=== PATIENT | male | born 1940 | race Caucasian/White ===

== ENCOUNTER 2025-06-16 08:23 | Day surgery (SDC) | payer OTHER, SELFPAY ==
[2025-06-16] VITALS (15 sets, daily range): BP systolic 102–135; BP diastolic 60–85; BMI 30.2
[2025-06-16 09:30] LABS: Hematocrit 38.9 % (39.0-52.0); Hemoglobin 12.8 g/dL (13.0-18.0); Mean Corp Hgb Conc. 32.9 g/dL (33.0-37.0); Mean Corpuscular Volume 82.9 fL (80.0-94.0); Platelet Count 229 10^3/uL (130-400); Red Cell Dist. Width 15.0 % (11.5-14.5)
[2025-06-16 09:31] LABS: Glucose - Point of Care 99 mg/dl (70-99)
[2025-06-16] MEDS: NSS 239 ML IV (09:51)
--- NOTE | 2025-06-16 11:55 | CONSULT.STRU ---
Consultation
-
Date/Time Consultation Requested: 06/16/2025
Date/Time Consultation Performed: 06/16/2025
Requesting Provider: Park Coleman MD
Performing Provider: Malika Fung
Reason for Consultation: / TAVR
Patient History
Physicians
Family Physician: Malika Heard MD
Outpatient Marine Chronometer Assembler: Von Pascal MD
Primary Marine Chronometer Assembler: Von Pascal
History of Present Illness
Mr. Mims is a very pleasant 84 yom with a past medical history significant for , Aflutter, DM, CAD w/ a hx of CABG (2007), and LBBB. His most recent echocardiogram from 05/16/2025 is notable for EF 30-35%, AV P/M 41//24. mild AI , mild MACm
mild MR, RVSP 14. Cardiac catheterization from 06/16/2025 demonstrated Severe functionally occlusive [place] left and right coronary disease.Widely patent ORTA to LAD, SVG to PDA, and SVG to D1 sequential to OM as described above. Preserved LV
systolic function with no significant mitral regurgitation.Severe aortic valvular stenosis. From a symptomatology standpoit, pt describes MARTINES. Discussed the pathophysiology and treatment options of including SAVR and TAVR. Reviewed the evaluation
process comprising of labs, CT scan, CT surgical consult, dental clearance, and a heart team discussion. TAVR booklet, contact information, prescriptions, and appointments given to patient and his spouse. Allowed for and answered questions at
bedside to the best of my ability.
Past Medical History
Past Medical History: Arrhythmias (LBBB), Atrial Fib, CAD, CHF (HFrEF), NIDDM, Valvular Disease (Aortic stenosis) and Other (hyperlipidemia)
Past Surgical History
Past Surgical History: CABG (05/01/2008)
Dental History
Patient states his dentist retired and he has not seen anyone new. Patient will call with the name of new dentist
Family History
Mother: N/A
Father: N/A
Social History
Alcohol: Occasional
Drug: None
Tobacco: Non-Smoker
Personal:
Living: With Spouse
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
Allergies
Allergy/AdvReac Type Severity Reaction Status Date / Time
No Known Allergies Allergy Verified 06/16/25 11:21
Home Medications
�Medication �Instructions �Recorded �Confirmed �Type
apixaban 5 mg tablet (Eliquis) 5 mg PO BID 06/16/25 06/16/25 History
aspirin 81 mg tablet 81 mg PO DAILY 06/16/25 06/16/25 History
atorvastatin 40 mg tablet 40 mg PO DAILY 06/16/25 06/16/25 History
empagliflozin 10 mg tablet 10 mg PO DAILY 06/16/25 06/16/25 History
(Jardiance)
furosemide 40 mg tablet 40 mg PO DAILY 06/16/25 06/16/25 History
glipizide 10 mg tablet 10 mg PO BID 06/16/25 06/16/25 History
metformin 1,000 mg tablet 1,000 mg PO BID 06/16/25 06/16/25 History
Held on 06/16/25.
Instructions: Resume on
06/18/25.
metoprolol tartrate 50 mg tablet 50 mg PO BID 06/16/25 06/16/25 History
multivitamin 1 tab PO DAILY 06/16/25 06/16/25 History
nitroglycerin 0.4 mg sublingual 0.4 mg sublingual Q5-15M PRN as 06/16/25 06/16/25 History
tablet needed
valsartan 80 mg tablet 40 mg PO DAILY 06/16/25 06/16/25 History
STS%
STS %: 6.58
Review of Systems
-
History Source: Patient
General: Reports Fatigue
HEENT: Reports No Symptoms
Respiratory: Reports MARTINES
Cardiac: Reports No Symptoms
Abdomen/GI: Reports No Symptoms
: Reports No Symptoms
Musculoskeletal: Reports No Symptoms
Skin: Reports No Symptoms
Neurological: Reports No Symptoms
Vascular: Reports No Symptoms
Physical Exam
Vital Signs
Temp 97.7 F 06/16/25 08:57
Temp route: Oral 06/16/25 08:45
Pulse 73 06/16/25 10:20
Resp Rate 14 06/16/25 08:45
Blood pressure 135/71 06/16/25 08:57
Blood pressure extremity used: Left upper arm 06/16/25 08:45
Position: Lying 06/16/25 08:45
MAP (cuff-Martina Monitor) 92 06/16/25 08:57
SaO2 97 06/16/25 10:20
Oxygen Mode of Delivery Room air 06/16/25 08:45
Can the patient verbally communicate their pain? Yes 06/16/25 08:45
Actual Weight 79.8 kg 06/16/25 07:20
Body Mass Index (BMI) 30.2 06/16/25 07:20
Labs
06/16/25 09:14
Diagnostic Studies
Procedure Type:�Isolated AVR
Perioperative Outcome Estimate %
Operative Mortality 6.58%
Morbidity & Mortality 15.3%
Stroke 2.12%
Renal Failure 2.1%
Reoperation 3.86%
Prolonged Ventilation 10.5%
Deep Sternal Wound Infection 0.154%
Long Hospital Stay (>14 days) 11.6%
Short Hospital Stay (<6 days)* 24.3%
ECHOCARDIOGRAM 05/17/2025:
SUMMARY
1. Moderately decreased left ventricular systolic function with hypokinesis of the basal to mid inferoseptal inferior and inferolateral hill.
2. Left ventricular ejection fraction, by visual estimation, is 30 to 35%.
3. Indeterminate LV diastolic function.
4. Right ventricular cavity size is normal with mildly decreased systolic function on limited views.
5. Normal left atrium by volume index (25.2 mL/m2) and normal right atrium by area (12.6 cm2).
6. Right atrial pressure of (3 mmHg), the estimated right ventricular systolic pressure is normal at (14.4 mmHg).
7. Aortic valve is thickened and calcified. Moderate to severe aortic valve stenosis. Mild aortic regurgitation.
8. AoV velocity of 3.21 m/s; Peak aortic valve gradient = 41.2 mmHg; Mean gradient = 23.9 mmHg; AoV Area by continuity equation = 0.71 cm2; AoV Dimensionless Index = 0.25.
9. Mild mitral annular calcification.
10. Mild mitral valve regurgitation is seen.
11. Compared to prior study 07-08-23, left ventricle function and aortic stenosis are worse.
CARDIAC CATHETERIZATION 06/16/2025:
ASSESSMENT:
1: Severe functionally occlusive [place] left and right coronary disease.
2: Widely patent ORTA to LAD, SVG to PDA, and SVG to D1 sequential to OM as described above.
3: Preserved LV systolic function with no significant mitral regurgitation.
4: Severe aortic valvular stenosis
CONCLUSIONS and RECOMMENDATIONS:
1: Proceed with TAVR evaluation.
2: Continue aggressive medical therapy for coronary artery disease, hypertension, hyperlipidemia and atrial fibrillation. Will resume DOAC this evening.
3: Clinical follow-up as scheduled
Exam
General: Well Developed, Well Nourished and No Apparent Distress
HEENT: Normocephalic
Neck: Trachea Midline
Respiratory: Clear (anterior)
Cardiac: Murmur (III/ VALERIANO)
GI: Soft, Non Tender and Non Distended
Rectal: Deferred by Provider
Skin: Warm and Dry
Neuro: Awake, Alert, Oriented and AO x 3
Psych: Calm
Assessment / Plan
-
Aortic Stenosis
Continue TAVR evaluation
Trend creatinine
TAVR CT scan
Will hold Eliquis x 48 hours for TAVR and resume post
Dental clearance
CT surgical consult
Frailty testing and [id number] at consult
Heart team discussion
Data Reviewed
-
EKG: Report Reviewed by me
Biological Science Technician Fish: Report Reviewed by me and Discussed with Physician
Echo: Report Reviewed by me and Discussed with Physician
Labs: Labs Reviewed by me
Old Records: Reviewed
Total Time Spent with Patient (in minutes): 45
--- NOTE | 2025-06-16 12:14 | ITS.CL.CATH ---
Ecological Technical Officer - Catheterization
Cardiac Catheterization
Procedure Report:
LEFT HEART CATHETERIZATION
Date of Procedure: June 16, 2025
Primary Care Physician: Dr. Malika Heard
Primary Press Operator Automatic: Dr. Von Pascal
Procedures performed:
1: Coronary angiography
2: Left internal mammary and saphenous vein bypass graft angiography
3: Left ventriculography
INDICATION: The patient is an 84-year-old man with a past medical history significant for CABG in 2007, hypertension, paroxysmal atrial fibs/flutter, diabetes, and hyperlipidemia who had heart failure and an EF drop with A-fib/RVR. Echocardiography
showed a drop in EF to 35% while in fib/flutter and severe progressive aortic stenosis. He is referred for coronary angiography in preparation for possible aortic intervention.
ACCESS: The patient was prepped and draped in usual sterile fashion. A 6 Angolan sheath was placed in the left artery using the Seldinger over the wire technique.
HEMODYNAMIC FINDINGS (mmHg):
LV(s/d,EDP): 163/7, 16
Ao(s/d,m): 130/58, 86
Mean aortic valve gradient on pullback: 30 mmHg
ANGIOGRAPHIC FINDINGS:
Single-plane Left Ventriculography performed in the BOOTHE projection: Mild anterolateral hypokinesis. Overall preserved LV systolic function with an ejection fraction of 50 to 55%. No significant mitral regurgitation.
Coronary Angiography:
Dominance: Right
Left Main: Proximal occlusion
Right Coronary: The right coronary artery has severe proximal disease with competitive flow from a widely patent vein graft.
SVG to PDA: High takeoff engaged with a 6 Angolan multipurpose diagnostic catheter from the left radial approach. The graft and proximal and distal anastomoses are widely patent. There is retrograde filling of the right PDA into a PLV branch system
that has severe 80 to 90% disease in the AV groove. I do not feel this is amenable to PCI.
SVG to diagonal sequential to OM: The graft is widely patent as are all anastomoses. The hoh vessels have diffuse disease throughout but are widely patent.
ORTA to LAD: Selectively cannulated with a 5 Angolan ORTA diagnostic catheter. The graft is small caliber but widely patent as is the anastomosis. The LAD is relatively small but appears free of focal obstructive disease with normal flow.
Fluoroscopy Time (min): 10.3
Radiation Dose (mGy): 386
DAP (Gy.cm2): 31
Closure device: None. A radial band was placed in the left radial artery for hemostasis.
Complications: None.
ASSESSMENT:
1: Severe functionally occlusive hoh left and right coronary disease.
2: Widely patent ORTA to LAD, SVG to PDA, and SVG to D1 sequential to OM as described above.
3: Preserved LV systolic function with no significant mitral regurgitation.
4: Severe aortic valvular stenosis
CONCLUSIONS and RECOMMENDATIONS:
1: Proceed with TAVR evaluation.
2: Continue aggressive medical therapy for coronary artery disease, hypertension, hyperlipidemia and atrial fibrillation. Will resume DOAC this evening.
3: Clinical follow-up as scheduled
Park Coleman M.D.
== END 2025-06-16 15:15 | disposition home or self-care (01) ==
LOC: CATH 08:23
PROVIDERS: ATTENDING PHYSICIAN Internal Medicine Interventional Cardiology; FAMILY PHYSICIAN Family Medicine; OTHER PHYSICIAN Internal Medicine Cardiovascular Disease
DX: I25.10 Atherosclerotic heart disease of native coronary artery without angina pectoris (principal); I48.91 Unspecified atrial fibrillation; I48.92 Unspecified atrial flutter; E78.49 Other hyperlipidemia; E11.9 Type 2 diabetes mellitus without complications; I50.9 Heart failure, unspecified; I11.0 Hypertensive heart disease with heart failure; Z95.1 Presence of aortocoronary bypass graft; I35.0 Nonrheumatic aortic (valve) stenosis; Z79.82 Long term (current) use of aspirin; Z79.01 Long term (current) use of anticoagulants; Z79.899 Other long term (current) drug therapy; Z79.84 Long term (current) use of oral hypoglycemic drugs; I44.7 Left bundle-branch block, unspecified; I34.81 Nonrheumatic mitral (valve) annulus calcification
CPT/HCPCS: 82962; 85027; 93005; 93459; C1769; C1894; Q9967

== ENCOUNTER → 2025-06-30 08:50 | Outpatient (REF) | payer OTHER, SELFPAY | LOC: RAD 08:50 | PROVIDERS: ATTENDING PHYSICIAN Nurse Practitioner Acute Care | DX: I35.0 Nonrheumatic aortic (valve) stenosis (principal) | CPT/HCPCS: 74174; 75572; Q9967 ==

== ENCOUNTER → 2025-07-21 11:34 | Outpatient (REF) | payer OTHER, SELFPAY | LOC: MRI 3T 11:34 | PROVIDERS: ATTENDING PHYSICIAN Student in an Organized Health Care Education/Training Program; FAMILY PHYSICIAN Family Medicine | DX: K86.9 Disease of pancreas, unspecified (principal) | CPT/HCPCS: 74183; A9575 ==

== ENCOUNTER 2025-09-08 06:03 | Day surgery (SDC) | payer OTHER, SELFPAY ==
[2025-09-08] VITALS (11 sets, daily range): BP systolic 83–119; BP diastolic 58–64; BMI 27.3
[2025-09-08 07:17] LABS: Glucose - Point of Care 217 mg/dl (70-99)
[2025-09-08 09:40] LABS: Glucose - Point of Care 248 mg/dl (70-99)
== END 2025-09-08 11:20 | disposition home or self-care (01) ==
LOC: GI 06:03
PROVIDERS: ATTENDING PHYSICIAN Internal Medicine Gastroenterology
DX: K86.2 Cyst of pancreas (principal); K25.9 Gastric ulcer, unspecified as acute or chronic, without hemorrhage or perforation; K31.89 Other diseases of stomach and duodenum
CPT/HCPCS: 43238; 43239; 82962; 88305; 88342

== ENCOUNTER 2025-09-09 07:07 | Inpatient (IN) | payer OTHER, SELFPAY ==
--- NOTE | 2025-08-31 08:59 | HPS.HSE ---
Family Physician
-
Family Physician: Malika Heard
Chief Complaint
-
MARTINES, fatigue
PreTAVR evaluation
History of Present Illness
Mr. Mims is a very pleasant 84 yom with a past medical history significant for , Aflutter, DM, CAD w/ a hx of CABG (2007), and LBBB. His most recent echocardiogram from 05/16/2025 is notable for EF 30-35%, AV P/M 41//24. mild AI , mild MAC
mild MR, RVSP 14. Cardiac catheterization from 06/16/2025 demonstrated Severe functionally occlusive [place] left and right coronary disease.Widely patent ORTA to LAD, SVG to PDA, and SVG to D1 sequential to OM as described above. Preserved LV
systolic function with no significant mitral regurgitation.Severe aortic valvular stenosis. From a symptomatology standpoint, pt describes MARTINES. Discussed the pathophysiology and treatment options of including SAVR and TAVR. Reviewed the
evaluation process comprising of labs, CT scan, CT surgical consult, dental clearance, and a heart team discussion. Reviewed patient with the heart team on 07/23/2025 and the team is agreeable to proceed with a right transfemoral TAVR utilizing a
29mm Evolut valve with no BAV.
Confirmed medication list and patient will continue aspirin including the morning of TAVR, last dose Eliquis will be Saturday (09/06) pm dose, last dose of jardiance will be Saturday (09/05). He will arrive to the [facility] at 0730. Reviewed the risks
of the procedure including stroke, vascular injury, and ppm. Allowed for and answered questions to the best of my ability.
Medical History
Past Medical History
Past Medical History: Reports Arrhythmia (aflutter), CAD (hx of CABG), CHF, HTN, NIDDM, Valvular Disease (aortic stenosis) and Other (LBBB)
Past Surgical History: Reports Cardiac (CABG 05/01/2008 ORTA to LAD, SVG to D1 seq. to OM1, SVG2 to LPDA)
Social History
Tobacco: Non-smoker
Alcohol: Occasional
Drug: None
Personal:
Living: With Family
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
Family History
Family History: Cancer
Allergies / Home Medications
Allergies reflects when Allergies were last updated in [employer].
NKDA
Home Medications with original date entered in [employer]
Aspirin Adult Low Dose(Aspirin) 81 MG Tablet Delayed Release 1 tablet Orally Once a day
Atorvastatin Calcium 40 MG Tablet 1 tablet Orally Once a day
Eliquis(Apixaban) 5 MG Tablet 1 tablet Orally twice a day
Furosemide 40 MG Tablet 1 tablet Orally Once a day
glipiZIDE ER 10 MG Tablet Extended Release 24 Hour 1 tablet with breakfast Orally twice a day
Jardiance(Empagliflozin) 10 MG Tablet 1 tablet Orally Once a day
metFORMIN HCl 1000 MG Tablet 1 tablet with a meal Orally twice a day
Metoprolol Tartrate 50 MG Tablet 1 tablet with food Orally Twice a day
Multivitamin(Multiple Vitamin) - Tablet 1 tablet Orally Once a day
Valsartan 40 MG Tablet 1 tablet Orally Once a day
Allergy/Medication List:
NKDA
Review of Systems
-
History Source: Patient
A 12 point ROS was completed and negative except as noted: Yes
Constitutional: Reports Fatigue
Respiratory: Reports Other (MARTINES)
Physical Exam
Physical Exam
General: Well Developed, Well Nourished, No Apparent Distress and Comfortable
HEENT: NormoCephalic
Respiratory: Clear
Cardiac: Murmur (III/ VALERIANO)
Breast: Deferred by me
GI: Soft, Non Tender and Non Distended
Rectal: Deferred by Provider
Genito-urinary: Deferred by me
Musculoskeletal: Edema, Left Lower Extremity (Trace) and Edema, Right Lower Extremity (trace)
Skin: Warm and Dry
Neuro: Awake, Alert, Oriented and AO x 3
Psych: Calm
Data Reviewed
-
CT Scan: Report Reviewed by me and Discussed with Physician (Reviewed CT scan with the heart team)
Medical Tests (Nuc Med, Echo, EKG etc): Report Reviewed by me and Discussed with Physician (Reviewed echocardiogram and catheterization with the heart team)
Lab Data: Labs Reviewed by me
Old Records: Reviewed
Impression/Plan
-
IMPRESSION/PLAN:
Aortic stenosis
TF TAVR planned with Drs. Peck and Radha utilizing a 29 mm Evolut valve.
Continue aspirin
Last dose Eliquis Saturday (09/06) pm dose
Last dose Jardiance Saturday (09/05)
POD#12/31 echocardiogram
Cardiac rehab consult
Labs
-
Labs:
WBC 10.7 10^3/uL (4.8-10.8) 09/01/25 08:27
RBC 4.77 10^6/uL (4.70-6.10) 09/01/25 08:27
Hgb 12.9 g/dL (13.0-18.0) L 09/01/25 08:27
Hct 40.6 % (39.0-52.0) 09/01/25 08:27
Plt Count 255 10^3/uL (130-400) 09/01/25 08:27
Sodium 137 mmol/L (135-145) 09/01/25 08:27
Potassium 5.2 mmol/L (3.5-5.1) H 09/01/25 08:27
Chloride 105 mmol/L (98-107) 09/01/25 08:27
Carbon Dioxide 25 mmol/L (22-30) 09/01/25 08:27
BUN 21 mg/dl (9-20) H 09/01/25 08:27
Creatinine 0.7 mg/dL (0.7-1.3) 09/01/25 08:27
eGFR > 60.00 09/01/25 08:27
Glucose 146 mg/dl (70-99) H 09/01/25 08:27
Calcium 9.1 mg/dl (8.4-10.2) 09/01/25 08:
Albumin 4.0 g/dl (3.5-5.0) 09/01/25 08:27
[2025-09-01 08:39] VITALS: BMI 29.4
[2025-09-01 09:25] LABS: Hematocrit 40.6 % (39.0-52.0); Hemoglobin 12.9 g/dL (13.0-18.0); Mean Corp Hgb Conc. 31.8 g/dL (33.0-37.0); Mean Corpuscular Volume 85.1 fL (80.0-94.0); Nucleated Red Blood Cells % 0 % (-); Platelet Count 255 10^3/uL (130-400); Red Cell Dist. Width 15.7 % (11.5-14.5)
[2025-09-01 09:31] LABS: INR 1.26; PT 16.3 Sec (11.4-14.6)
--- NOTE | 2025-09-01 09:43 | CM ---
Met with and Mrs. Mims in [facility]. He states prior to admission he resides with his spouse in a two story home with two steps to enter . He states he has a full flight of steps to get to bedroom/full bathroom. He states he has a powder room
on the first floor. He states prior to admission was independent with ambulation and adls. He states she does not have any DME in the home. He states he has a prescription plan and uses [facility]. His spouse states she works inspector timers
but she is planning on taking time off to assist in his care if needed. The discharge plan is to return home with his spouse and a home visit by the Transitional Care Nurse when medically stable.
We reviewed pre-op and post-op routines. We reviewed the shower instructions. He has the soap, written instructions and the TAVR Educational Booklet. We also reviewed restrictions including driving and lifting restrictions. We discussed a home
visit by the Transitional Care Nurse. He is agreeable to a home visit. The plan is for TAVR on on 09/09/25.
[2025-09-01 09:59] LABS: Urine Character Clear (Clear)
[2025-09-01 10:21] LABS: ALT (SGPT) 30 U/L (0-50); AST (SGOT) 32 U/L (17-59); Albumin 4.0 g/dl (3.5-5.0); Alkaline Phosphatase 113 U/L (38-126); Blood Urea Nitrogen 21 mg/dl (9-20); Calcium 9.1 mg/dl (8.4-10.2); Carbon Dioxide 25 mmol/L (22-30); Chloride 105 mmol/L (98-107); Estimated Creatinine Clearance 77 ml/min; Glucose 146 mg/dl (70-99); Potassium 5.2 mmol/L (3.5-5.1); Sodium 137 mmol/L (135-145); Total Protein 6.6 g/dl (6.3-8.2); eGFR > 60.00
[2025-09-01 10:30] LABS: Glycohemoglobin (HgbA1c) 8.2 % (4.0-5.6)
[2025-09-01 10:45] LABS: Urine Urothelial Cell 0-2 /LPF (FEW)
[2025-09-01 10:48] LABS: Urine White Cell 0-2 /HPF (0-5)
[2025-09-09] VITALS (41 sets, daily range): BP systolic 96–143; BP diastolic 63–106; BMI 28.2
[2025-09-09 08:16] LABS: Glucose - Point of Care 204 mg/dl (70-99)
--- NOTE | 2025-09-09 08:22 | PTCARENOTE ---
Pt here for TAVR today. Pt last took his jardiance, metformin, glipizide, and metoprolol tartrate on 09/05. Dr Ramirez made aware and ordered insulin. Dr Ramirez states he will treat blood pressure and heart rate during procedure. Pt also took aspirin
last night and not today. Rebekah Fung NP made aware and ordered aspirin. Will follow above orders and continue to monitor.
[2025-09-09] MEDS: NOVOLOG vial 2 UNITS SC (08:36)
[2025-09-09] MEDS: LOW STRENGTH ASPIRIN 81 MG PO (08:39)
--- NOTE | 2025-09-09 09:48 | W.CVOR.SURPR ---
CVOR Surgeon Immed Pre Op
-
I have examined this patient prior to performance of the scheduled procedure.
The patient's condition is unchanged from the time of the dictated/written History and
Physical and the patient is able to undergo the scheduled procedure.
[2025-09-09] MEDS: ANCEF 10 IV ×2 (10:39→11:39)
[2025-09-09 10:43] LABS: Glucose - Point of Care 152 mg/dl (70-99)
--- NOTE | 2025-09-09 12:17 | W.IMMPOSTOP ---
Surgical Immed Post Op Note
-
[id number]
STRUCTURAL HEART PROCEDURE NOTE: TAVR
Preoperative Dx:
Moderate to severe aortic stenosis with peak/mean valve gradients of 41.2/23.9 mmHg respectively with calculated ANGELA of 0.71, DI 0.25
CAD status post prior CABG with patent grafts
Heart failure with reduced ejection fraction, LVEF 30 to 35%
Known left bundle branch block
Mild hypertension
Hyperlipidemia
Type 2 diabetes mellitus
Urinary frequency
Postoperative Dx:
Same
Acute on chronic combined systolic/diastolic CHF with elevated LVEDP (25 mmHg)
Procedures:
1. Left CFV access with ultrasound, fluoroscopic guidance, micropuncture technique, 6 Omani sheath placement
2. Left CLINICAL LEADER access with tactile, ultrasound, fluoroscopic guidance, micropuncture technique, limited angiography, 6 [place]mani sheath placement
3. Right CLINICAL LEADER access with tactile, ultrasound, fluoroscopic guidance, micropuncture technique, limited angiography, 6 [place]man[place] sheath placement
4. Placement of temporary RV pacing wire under fluoroscopic guidance with threshold testing
5. Placement of pigtail catheter noncoronary cusp limited aortography and confirmation of cusp overlap views
6. Placement of Perclose sutures x 2 into right common femoral artery with subsequent placement of 8 Omani sheath
7. Serial dilation of right iliofemoral system with subsequent placement of 14 O[place]i Cook sheath
8. Wire purchase across stenotic aortic valve (AL-1, soft-tipped straight, table J-wire, pigtail catheter, LVEDP assessment)
9. Fluoroscopic inspection of TAVR valve and TAVR valve delivery system
10. Removal of 14 Oman[place] Cook sheath with placement of TAVR valve/inline sheath with fluoroscopic valve orientation in situ
11. Right transfemoral TAVR with placement of 29 mm Evolut Fx+ TAVR valve (1 partial recapture/reposition)
12. Completion aortography
13. Completion TTE assessment (no AI/PVL, mean gradient 2 mmHg)
14. Removal of valve delivery system with right CLINICAL LEADER management with Perclose sutures x 2, manual pressure
15. Completion right iliofemoral angiography
16. Removal of temporary pacing wire
17. Removal of left CLINICAL LEADER 6 Omani sheath with management with 6 Omani Angio-Seal, manual pressure
18. Removal of left CFV 6 Omani sheath, manual pressure
lab animal technologist:
Dr. Jason Peck
Cardiac surgeon:
Dr. Eduardo Cummings
Anesthesia:
MAC with local to bilateral groins
Cath Data:
Start: 1104 hrs. Deploy: 1157 hrs. End: 1113 hrs.
FT: 9.9 minutes, mGy: 471, DAP: 39
Post TTE: Mean gradient 2 mmHg, no AI/PVL
Implants:
29 mm Medtronic Evolut valve serial number [id number]
Perclose x 2 to right CLINICAL LEADER
6 [place]mani Angio-Seal to left CLINICAL LEADER
Complications:
None
Condition:
Stable/guarded to recovery
[2025-09-09 13:32] LABS: Glucose - Point of Care 163 mg/dl (70-99)
--- NOTE | 2025-09-09 13:40 | ITS.CL.TAVR ---
Filter Pulp Washer - TAVR Report
TAVR PRocedure
Procedure Report:
TRANSCATHETER AORTIC VALVE REPLACEMENT
Date of Procedure: September 09, 2025
Referring: Dr. Von Pascal
Operators: Drs. Jason Peck and Eduardo Cummings
PROCEDURE PERFORMED:
1. Successful placement of 29 mm Medtronic Evolut Pro+ valve via right femoral artery.
2. Vascular access in the left common femoral artery using ultrasound guidance and placement of a 6 Fr. sheath. Imaging was obtained and is part of patients permanent record. Venous access in the left common femoral vein using ultrasound guidance
and placement of a 6 American sheath. Imaging was obtained and is part of the patient's permanent record. Arterial access was obtained in the right common femoral artery using ultrasound guidance with placement of a 6 American arterial sheath.
Imaging was obtained in as part of the patient's permanent record.
PREPROCEDURE NYHA CLASS: 3
DESCRIPTION OF PROCEDURE: The patient was referred for assessment of severe low flow low gradient symptomatic aortic stenosis. Following a comprehensive evaluation it was felt that transcatheter aortic valve replacement (TAVR) would be the most
appropriate treatment. Informed consent was obtained prior to the procedure. A 'time-out' was called and the procedural plan was verbally confirmed by anesthesia, surgery, perfusion, and biological lab technician staff.
Arterial and venous access were obtained in the left common femoral artery and vein using a micropuncture technique and 6 Fr. sheaths were inserted. Ultrasound guidance was then used to obtain arterial access in the right common femoral artery and
a 6 Fr. sheath was inserted. Angiography was performed and the arteriotomy site appeared appropriately positioned for preclosure using two Perclose devices.
Attention was then turned back to the right common femoral access sites and a 5 Fr transvenous pacing wire was then advanced to the right ventricle where excellent pacing thresholds were obtained. A 5 Fr. pigtail catheter was then advanced to the
proximal ascending aorta / noncoronary cusp where angiography was performed to define the the cusp overlap view isolating the non-coronary cusp with overlap of the right and left coronary cusps. The cusp overlap view was BOOTHE 22/CAU 25.
A Double-curve [place] 0.035' wire was advanced through an AL1 diagnostic catheter and positioned in the proximal descending thoracic aorta. The right common femoral arteriotomy tract was dilated and followed by placement of a 14 Fr / 13 cm
Cook sheath.
An AL1 catheter was then advanced over the Double-curve Lunderquist wire which was allowed to drift across the aortic arch. The AL1 catheter was positioned above the aortic valve. The Lunderquist wire was removed and the stenotic aortic valve was
crossed using a 0.035' Straight tip wire. The AL1 was then advanced to the mid left ventricle where it was exchanged for an angled pigtail catheter. The LVEDP was then measured at 27 mmHg. The Double Curve Lunderquist was then advanced through
the pigtail catheter and to the left ventricular apex.
The Evolut Pro+ stent was inspected under fluoroscopy/cine while rotating the stent delivery system. The stent paddles were within the pocket and no significant crown overlap noted.
The 29 mm Evolut Pro+ stent was advanced across the stenotic leaflets. The Evolut Pro+ valve was slowly deployed in the leaflet overlap view until the stent flared achieving contact at 3 below the noncoronary cusp. The stent continued to flared
achieving contact with the left coronary cusp. The image intensifier was rotated to an GUAMANIAN position to remove parallax from the valve with continued valve deployment with controlled pacing. We transitioned quickly through the rumble strips on the
InLine delivery sheath until the marker band was positioned just below the paddle attachment. Angiography was performed and the valve appeared deep in the left coronary cusp. The decision was made to perform a partial recapture during rapid
pacing. The valve was pulled slightly more aortic than redeployed. Angiography was performed and the depth appeared more reasonable. We deployed the valve very slowly until the paddles were released from the valve delivery structure. Post
deployment angiography had only mild aortic insufficiency and a mean gradient of 2 mmHg.
The Evolut Pro+ delivery system capsule was reunited to the body of the delivery system. The Evolut InLine sheath was removed and the Perclose knots were advanced to the arteriotomy site resulting in excellent hemostasis.
Fluoro Time (min): 8.4, Dose (mGy): 252, DAP (Gy.cm2) : 35.4
CONCLUSIONS:
1. Severe symptomatic aortic stenosis. Successful deployment of a 29 mm Evolut Pro+ valve with minimal aortic insufficiency post procedure
2. Successful arteriotomy closure with 2 Perclose devices.
Copy to: Dr. Von Pascal
--- NOTE | 2025-09-09 15:17 | CM ---
Reviewed chart. Mr. Mims is in the operating room today. Prior to admission he resides with his spouse in a two story home with two steps to enter . He has a full flight of steps to get to bedroom/full bathroom. He has a powder room on the
first floor. Prior to admission was independent with ambulation and adls. He states she does not have any DME in the home. He has a prescription plan and uses [facility]. His spouse works time recorder but she is planning on taking time
off to assist in his care if needed. The discharge plan is to return home with his spouse and a home visit by the Transitional Care Nurse when medically stable.
[2025-09-09] MEDS: LASIX 40 MG IV (17:34)
[2025-09-09] MEDS: LOPRESSOR 2.5 MG IV (17:35)
[2025-09-09] MEDS: FARXIGA 10 MG PO (17:35)
[2025-09-09] MEDS: THERAGRAN 1 TABLET PO (17:35)
[2025-09-09] MEDS: LIPITOR 40 MG PO (17:35)
[2025-09-09] MEDS: ASPIR LOW (ENTERIC COATED) 81 MG PO (17:35)
--- NOTE | 2025-09-09 19:02 | PTCARENOTE ---
~8738-4852: Received report from CCL. Patient brought to room via bed. AOx4, NSR 1st degree AVB BBB 80s with occassional PVCs, SBP 90s with Levo @ 1 at this time. Patient does not c/o pain. Patient to be bedrest until 1630. B/L groin sites CDI.
Patient oriented to room and call ryder system. Admission questions completed. All needs met at this time, call ryder within reach.
~4269-3658: SBP 100s, levo turned off at this time.
~4076-7127: HOB raised to 30 degrees. Groin sites remains soft, CDI with no sign of bleeding or hematoma noted. Patient assisted OOB to chair to eat dinner.
~9906-3823: Around 1715 patient went into Afib 120s-160s, SBP 120s. Marzena Donohue PA-C made aware, new orders placed. 2.5 IV lopressor given, HR down to 80s-100s Afib. Patient denies pain at this time. B/L groins soft and pt OOB in chair. Around
1850, patient self converted to NSR 80s, SBP 100s, Marzena Donohue PA-C made aware. All needs met at this time, call ryder within reach. Handoff report given to nightshift RN.
[2025-09-09] MEDS: ANCEF 5 IV (19:55)
[2025-09-09] MEDS: LOPRESSOR 50 MG PO (19:55)
[2025-09-09 21:20] LABS: Glucose - Point of Care 194 mg/dl (70-99)
[2025-09-09] MEDS: GLUCOTROL 10 MG PO (21:46)
[2025-09-10] VITALS (7 sets, daily range): BP systolic 94–135; BP diastolic 59–76; PULSE 86; O2SAT 98–99; BMI 27.9
--- NOTE | 2025-09-10 00:16 | W.PN.CT ---
Today's Communication / Plan
-
AFib (In and out) overnight =�1 * rapid (Rate in�160) =�2.5mg�of�Lopressor�(rate become control�
Diuresis = received�Lasix�40�mg*2 of overnight�
Restarted�metoprolol�
Echo in AM�
ASA/Eliquis
Encourage IS, OOB�
Assessment / Plan
-
s/p TAVR placement of�29 mm�Medtronic�Evolut�Pro+ valve via right femoral artery. POD #1
PMH:�
Heart failure with reduced ejection fraction,
LVEF 30 to 35%,�
,
Hx�of a flutter and fib,�
Hx�of CABG�2007 (ORTA to LAD, SVG to�D1 To OM1, SVG2 to LPDA),�
DM2,
LBBB,
HTN,
HLD,�
LBBB,
Urinary frequency�
Subjective
-
Date of Service: September 10, 2025
Objective Data
-
PT 16.3 Sec (11.4-14.6) H 09/01/25 08:27
INR 1.26 09/01/25 08:27
Vital Signs
Vital Signs
Temp Pulse Resp BP Pulse Ox
99.8 F 88 18 112/67 97
09/09/25 23:13 09/09/25 23:30 09/09/25 23:13 09/09/25 23:12 09/09/25 23:13
CT Intake/Output/Weight
09/09/25 09/09/25 09/10/25
06:59 18:59 06:59
Intake Total 1800 / 0 250 / 2050
Output Total 425 / 1325 900 / 1325
Balance 1375 / 725 -650 / 725
SaO2: 97
Physical Exam
-
General: Awake
Cardiovascular: Regular rate & rhythm
Respiratory: Clear and Equal
Extremities: No Edema
--- NOTE | 2025-09-10 01:04 | PTCARENOTE ---
assumed care of patient at the change of shift. resting in the chair. denies any pain. neuro intact. HR SR with a BBB at times. appears to be going in rapid afib more frequently. patient asymptomatic. appears to occur with movement- patient standing
to urinate. updated CV PAs. ordered lopressor given. bp stable. educated patient to inform RN with any new changes. b/l groin sites intact. LE edema noted- R>L. patient states he injured his right ankle recently causing the swelling. reviewed plan
of care and verbalized understanding. call ryder within reach. makes needs known.
[2025-09-10 04:12] LABS: Hematocrit 35.1 % (39.0-52.0); Hemoglobin 11.3 g/dL (13.0-18.0); Mean Corp Hgb Conc. 32.2 g/dL (33.0-37.0); Mean Corpuscular Volume 82.0 fL (80.0-94.0); Platelet Count 197 10^3/uL (130-400); Red Cell Dist. Width 15.6 % (11.5-14.5)
[2025-09-10 04:29] LABS: Blood Urea Nitrogen 16 mg/dl (9-20); Calcium 8.1 mg/dl (8.4-10.2); Carbon Dioxide 30 mmol/L (22-30); Chloride 100 mmol/L (98-107); Estimated Creatinine Clearance 84 ml/min; Glucose 159 mg/dl (70-99); Magnesium 1.8 mg/dl (1.6-2.3); Potassium 3.5 mmol/L (3.5-5.1); Sodium 134 mmol/L (135-145); eGFR > 60.00
[2025-09-10] MEDS: MAGNESIUM OXIDE 400 MG PO (06:05)
[2025-09-10] MEDS: KCL 20 MEQ PO (06:06)
[2025-09-10] MEDS: DIOVAN 40 MG PO (07:56)
[2025-09-10] MEDS: LOPRESSOR 50 MG PO (07:56)
[2025-09-10] MEDS: GLUCOTROL 10 MG PO (07:56)
[2025-09-10 07:59] LABS: Glucose - Point of Care 189 mg/dl (70-99)
--- NOTE | 2025-09-10 08:11 | W.PN.ANS.POP ---
Anesthesia Post Operative
- Anesthesia Post Op Note
Vital Signs Stable-See Nursing Note: Yes
Airway Patent: Yes
Adequate Pain Control: Yes
Change in Mental Status: No
Current Postoperative Nausea & Vomiting: No
Anesthesia Complications: No
General Anesthetic Recall: No
Unplanned Admission: No
Post Op Hydration Adequate: Yes
[2025-09-10 08:58] LABS: ACT-LR - POC 265 Seconds (116-155)
[2025-09-10 08:58] LABS: ACT-LR - POC 334 Seconds (116-155)
--- NOTE | 2025-09-10 10:20 | W.DCSUMMARY ---
Discharge Summary
Discharge Data
Date of Admission: 09/09/25
Date of Discharge: 09/10/25
-
Pending Results: No
Hospital Course
Primary care physician: Dr. Malika Heard MD
Outpatient industrial commercial groundskeeper: Dr. Von Pascal MD
Inpatient consultants: [facility]
Procedures:
1. Right Transfemoral TAVR with #29 mm Medtronic Evolut Valve with Dr. Jason Peck and Dr. Eduardo Cummings.
Primary Diagnosis:
1. Severe, Symptomatic Aortic Stenosis
Secondary Diagnoses:
1. Acute on chronic HFrEF
2. CAD s/p CABG (2007) (ORTA-LAD, SVG-D1-OM1, SVG-LPDA)
3. T2DM
4. Chronic LBBB
5. HTN
6. HLD
7. Atrial Fibrillation/Atrial Flutter
8. Urinary frequency
HPI: Hakeem Mims is an 84-year-old male with a known PMHx of severe, symptomatic aortic stenosis who presented for outpatient consultation with complaints of dyspnea on exertion and fatigue. He underwent extensive outpatient diagnostic
testing and determined to undergo TAVR. Please see preoperative history and physical for complete presentation prior to procedure.
Hospital course: On 09/09/2025 patient was electively admitted for TAVR and underwent transcatheter aortic valve replacement via right transfemoral artery with 29 mm Medtronic Evolut Valve with Dr. Jason Peck and Dr. Eduardo Cummings. Please see
interventional list and surgeons postoperative notes for complete details of procedure. Intraoperatively, there were no significant events and the patient went directly to Weaving Professor recovery. Bilateral groin sites remained stable. Initial
postoperative TTE showed LVEF of 45 to 50%, TAVR valve with peak/mean gradient of 4/2 without AI. LVEDP was estimated to be 25 in which he received Lasix 40 mg IV. Postoperative EKG showed sinus rhythm with first-degree AVB (CARLY 228) and LBB
(chronic). Following recovery, he was transferred to the interventional unit for the remainder of his stay. In the evening, patient endured AF with RVR in which he converted with Lopressor 2.5 mg IVP. His home regiment of Metoprolol Tartrate 50 mg
BID and Eliquis 5 mg BID. On postoperative day 1, patient was tolerating his diet and ambulating without issue. Procedural sites were without hematoma or tenderness. Chest x-ray did not show any cardiopulmonary process. EKG showed sinus rhythm
with first-degree AVB (234) and left bundle branch block. His lab work remained normal and was given electrolyte replacement for a K of 3.5 and magnesium of 1.8. TTE showed EF 45% with mildly decreased LV systolic unction, global hypokinesis with
regional variation; AV with well-seated 29 mm Medtronic Evolut FX+ valve with P/M 10/5 with mild PVL, no pericardial effusion. He was deemed stable for discharge to home. His weight at discharge was 78.5 kg with a preoperative weight of 78.3 kg.
He was sent home on his prior home medication regimen with plan to continue aspirin and Eliquis for new valve and known history of AF. The importance of antibiotics prior to dental procedures was shared with patient. He was given education on
caring for procedural sites. He will follow-up with his industrial commercial groundskeeper within 30 days from discharge and receive a repeat TTE. The discussion of further AF management should be discussed at follow-up with Cardiology. He will be seen by transitional
care nursing within 2 to 3 days from discharge.
Home medication changes:
- Metformin 1,000 mg BID placed on hold, to resume 09/11/25 in AM.
- Acetaminophen 650 mg Q6H PRN for mild pain/KEITH/fever.
- ASA 81 mg daily for TAVR Valve
Discharge Plan
-
Patient Disposition: Home (Routine Discharge)
Discharge Diagnosis/Procedures: Aortic Stenosis
s/o Right Transfemoral TAVR (#29 mm Medtronic Evolut) on 09/09/[address] Eduardo Cummings and Dr. Jason Peck
Condition: Good
Diet: Low Fat, Low Cholesterol and 2 Gram Sodium
Activity: As tolerated
Additional Activity: No heavy lifting anything greater than 10 lbs for 1-week.
Driving Restrictions: No driving for 24 hours
Bathing Restrictions: OK to Shower
Others Tests: 30-day follow up echocardiogram: Please make an appointment with Dr. Pascal's office for your follow up echocardiogram
Other Services: Cardiac Rehab
Wound Care: No lotions, powders, or creams to puncture sites.
No soaking in bath tub/hot tub/water for 1-week while procedural sites heal.
Specialty Instructions: Weigh Daily- Call MD for wt gain/loss 3 lbs overnight/5 lbs in 1 week
Activity Restrictions/Additional Instructions:
Please call to make appointments for Phase II Cardiac Rehab:
[facility]: (7 min from home)
[phone]
* See handouts with discharge instructions
Referrals:
CT Transitional Care Nurse [Outside] - in one to two days
Referral Note:
The Cardiothoracic Transitional Care Nurse will call you to set up a visit in 1-2 days.
Malika Heard MD [Family Provider, Family Practice] - in four to six weeks
Referral Note: Please make an appointment in four to six weeks.
Von Pascal MD [Active, Cardiology] - 10/12/25 2:00 pm
Referral Note: New Address: [address] [place] [address], [facility] [address]
[place] [address]
Phone number is [phone].
Will need to see Dr. Pascal before ECHO can be scheduled.
Prescriptions:
New
acetaminophen 325 mg Tablet
650 mg PO Q6HPRN PRN (Reason: KEITH, mild pain, or fever >101F) Qty: 0 0RF
Continued
multivitamin Tablet
1 tab PO QPM
furosemide 40 mg Tablet
40 mg PO QPM
atorvastatin 40 mg Tablet
40 mg PO QPM
glipizide 10 mg Tablet
10 mg PO BID
metoprolol tartrate 50 mg Tablet
50 mg PO BID
Eliquis 5 mg Tablet
5 mg PO BID
Jardiance 10 mg Tablet
10 mg PO QPM
nitroglycerin 0.4 mg Tablet, Sublingual
0.4 mg SUBLINGUAL Q5-15M PRN (Reason: as needed )
Patient Comments:
Pt states he has never had to take this med
aspirin 81 mg Tablet,Delayed Release (Dr/Ec)
81 mg PO QPM
valsartan 40 mg Tablet
40 mg PO BID
Held
metformin 1,000 mg Tablet
1,000 mg PO BID
Hold Instructions: Resume on 09/11/25. Resume on 09/11/25
Discharge Orders:
Discharge Patient (As Directed); Ordered 09/10/25
Ordered By: Renate Oglesby
Care Plan Goals
Care Plan Goals:
Problem: Readiness for enhanced knowledge related to diagnosis and treatment plan
Goal: Understand your diagnosis and treatment plan needs, including medications if applicable.
Instructions: Know your diagnosis, underlying causes and treatment plan options, including medications if applicable. Consult with your health care team to learn about your diagnosis and treatment plan, including medications if applicable.
Discharge Date and Time
Print Language: JAPANESE
--- NOTE | 2025-09-10 10:56 | PTCARENOTE ---
Assumed care this morning at 0700. Patient in chair. NSR with 1 degree AVB BBB, A-fib BBB. Trace ankle edema. B/L femoral sites CDI, weak DP. VSS, call ryder in reach
--- NOTE | 2025-09-10 11:14 | CM ---
Chart reviewed. Patient is independent of ADLS, lives with his in a 2 STH, 2 BELLA, 0 DME. Plan is for the patient to return home with CT Transitional RN. CM to follow
--- NOTE | 2025-09-10 13:08 | W.PN.CARDCBS ---
Addendum entered and electronically signed by Negrita Blackmon MD 09/10/25 17:24:
Bilateral groin sites with dressing in place which is clean, dry and intact without evidence of hematoma or bruit.
Negrita Blackmon MD, [facility], [facility]
Addendum entered and electronically signed by Negrita Blackmon MD 09/10/25 17:21:
I saw and examined the patient.
The Clinical Quality Rn's note was reviewed and I agree with the note.
Comment: Overnight patient did well and does not offer any significant complaints. No issues at the groin sites. He has been ambulating without any difficulty. No shortness of breath or chest discomfort.
Vital signs and lab work reviewed. On exam patient is well-appearing, out of bed in a chair, is at bedside, irregular irregular rate, normal S1 and S2, 2 out of 6 systolic ejection murmur at the right upper sternal border rubs or gallops,
lungs are clear to auscultation bilaterally, abdomen is soft, nontender, nondistended with active bowel sounds, warm extremities without significant edema.
Telemetry with mostly rate controlled atrial fibrillation with intermittent episodes of RVR.
Recommendations:
1. Continue home Eliquis and beta-ivelisse for now. Given borderline low blood pressures, holding off on uptitrating beta-ivelisse or adding diltiazem.
2. Discussed with patient possible role for amiodarone to be considered as an outpatient given he would like to speak to outpatient route sales person first.
3. Echocardiogram reviewed showing stable gradients without significant PVL.
4. Discussed all of the above with outpatient route sales person, Dr. Von Pascal. Follow-up will be set up with him.
Stable for discharge otherwise from a cardiac standpoint.
Negrita Blackmon MD, [facility], [facility]
Original Note:
Today's Communication / Plan
-
remains in mostly rate controlled afib
continue BB, eliquis, asa
EF improved by post TAVR echo
OP follow up with Dr. Pascal to discuss rhythm control vs CV for mosque of SR
plan for DC today
Impression / Plan
-
Primary Casualty Underwriter: Dr. Pacsal
Assessment:
Severe symptomatic s/p R TF 29mm Medtronic Evolut TAVR 09/09/25
Heart failure with reduced ejection fraction
Cardiomyopathy EF 30 to 35%
Persistent atrial fibrillation/atrial flutter
Chronic anticoagulation with Eliquis
CAD status post CABG x 4 in 2007 (ORTA to LAD, SVG to�D1 To OM1, SVG2 to LPDA)
Chronic left bundle branch block
Type 2 diabetes
HTN
HLD
ECHO 05/17/25: EF 30 to 35% with hypokinesis of basal to mid inferoseptal inferior and inferior lateral hill, moderate to severe with mild AR, peak/mean gradients 41/24 mmHg, ANGELA 0.7 cm�, mild MAC, mild MR
Echo 09/09/2025: EF 45 to 50%, number 29 mm Medtronic Evolut TAVR with peak/mean gradients 4/2 mmHg, no AR
Echo 09/10/2025: EF 45%, #29 Medtronic TAVR with peak/mean gradients 10/5 mmHg, mild perivalvular leak, no pericardial effusion
Plan:
- Status post right transfemoral 29 mm Medtronic evolut TAVR 09/09/2025
- Received dose of IV Lasix 40mg postprocedure. Continue p.o. Lasix 40 mg every afternoon and Jardiance as per outpatient dosing
- Remains by my review in mostly rate controlled atrial fibrillation with occasional bumps in heart rate to 120s. Continue Lopressor 50 mg twice daily-ideally in setting of reduced EF would place on Toprol or Coreg, but defer to primary route sales person
- Reviewed primary route sales person visit pre-TAVR with plan for consideration for cardioversion in outpatient setting once TAVR completed. It was suspected that atrial fibrillation/atrial flutter was in part related to severe , and rhythm control
was felt to be difficult in setting of valve disease and with reduction in EF
- By echo this admission EF appears to be improved at 45% - continue BB, valsartan, jardiance
- If remains in atrial fibrillation at time of office visit 10/12, would consider for AAD for arrhythmia suppression
- Continue Eliquis, asa. hgb 11.3
- no groin issues overnight
- plan for DC to home
- OP follow up with Dr. Pascal
- d/w nursing. d/w patient and at bedside. d/w CT surgery CLARITY DEVELOPER
Progress Note - Casualty Underwriter
Subjective
Date of Service: September 10, 2025
denies CP, SOB. reports no issues with groin sites
Objective
Labs:
09/10/25 03:32
09/10/25 03:32
Labs
Hgb 11.3 g/dL (13.0-18.0) L 09/10/25 03:32
Hct 35.1 % (39.0-52.0) L 09/10/25 03:32
Plt Count 197 10^3/uL (130-400) 09/10/25 03:32
PT 16.3 Sec (11.4-14.6) H 09/01/25 08:27
INR 1.26 09/01/25 08:27
Sodium 134 mmol/L (135-145) L 09/10/25 03:32
Potassium 3.5 mmol/L (3.5-5.1) 09/10/25 03:32
BUN 16 mg/dl (9-20) 09/10/25 03:32
Creatinine 0.6 mg/dL (0.7-1.3) L 09/10/25 03:32
Glucose 159 mg/dl (70-99) H 09/10/25 03:32
Vital Signs and I&O:
Vital Signs
Temp Pulse Resp BP Pulse Ox
97.7 F 82 24 121/74 97
09/10/25 11:15 09/10/25 09:30 09/10/25 11:15 09/10/25 07:57 09/10/25 11:15
Vital Signs
Temp Pulse Resp BP Pulse Ox
97.7 F 82 24 121/74 97
09/10/25 11:15 09/10/25 09:30 09/10/25 11:15 09/10/25 07:57 09/10/25 11:15
Intake & Output
09/08/25 09/09/25 09/10/25 09/11/25
07:59 07:59 07:59 07:59
Intake Total 2049 / 2049
Output Total 1425 / 1425 100 / 100
Balance 625 / 625 -100 / -100
Physical Exam
Physical Exam
GEN: No distress, awake, alert, oriented x3. sitting in chair
HEENT: supple, anicteric, mmm, eomi
LUNGS: CTA B/L, no wheezes/rales
CV: Irreg, S1/S2, 1/6 syst LSB
ABD: soft, BS+, NT/ND
EXT: No cyanosis, clubbing. trace edema of B/L LE
NEURO: Gross non-focal
SKIN: Warm, pink, dry. No rash. B/L groin sites soft, dressings c/d/i
[2025-09-10 13:09] LABS: Glucose - Point of Care 117 mg/dl (70-99)
[2025-09-10 13:09] LABS: Glucose - Point of Care 240 mg/dl (70-99)
--- NOTE | 2025-09-10 15:01 | PTCARENOTE ---
Patient discharged to home. IV and telemetry removed. Discharge teaching provided, verbalized understanding. Patient escorted to main lobby in a wheelchair
== END 2025-09-10 15:13 | disposition home or self-care (01) | DRG 266 ==
LOC: IVU 07:07
PROVIDERS: Physician Assistant Surgical; ADMITTING PHYSICIAN Thoracic Surgery (Cardiothoracic Vascular Surgery); FAMILY PHYSICIAN Family Medicine; OTHER PHYSICIAN Internal Medicine Interventional Cardiology
PROC: 02RF38Z Replacement of Aortic Valve with Zooplastic Tissue, Percutaneous Approach (ICD-10-PCS; 2025-09-09)
DX: I35.0 Nonrheumatic aortic (valve) stenosis (principal); Z00.6 Encounter for examination for normal comparison and control in clinical research program; I50.43 Acute on chronic combined systolic (congestive) and diastolic (congestive) heart failure; I48.92 Unspecified atrial flutter; I48.19 Other persistent atrial fibrillation; I42.9 Cardiomyopathy, unspecified; I25.10 Atherosclerotic heart disease of native coronary artery without angina pectoris; I44.7 Left bundle-branch block, unspecified; I11.0 Hypertensive heart disease with heart failure; E78.5 Hyperlipidemia, unspecified; E11.9 Type 2 diabetes mellitus without complications; R35.0 Frequency of micturition; Z95.1 Presence of aortocoronary bypass graft; Z79.01 Long term (current) use of anticoagulants; Z79.82 Long term (current) use of aspirin; Z79.84 Long term (current) use of oral hypoglycemic drugs
CPT/HCPCS: 33361; 36415; 71045; 71046; 80048; 80053; 81003; 81015; 82248; 82962; 83036; 83735; 85025; 85027; 85347; 85610; 86850; 86900; 86901; 87070; 93005; 93308; 93321; 93325; C1760; C1769; C1894; Q9967